=== PATIENT | female | born 1990 | race Hispanic/Latino ===

== ENCOUNTER 2018-03-16 19:07 | Emergency (ER) | payer SELFPAY ==
[2018-03-16 19:54] LABS: Urine Blood 3+ (NEG); Urine Glucose NEGATIVE (NEG); Urine Protein 1+ (NEG); Urine Specific Gravity 1.015 (1.005-1.030); Urine pH 8.5 (5.0-7.0)
[2018-03-16 20:02] LABS: Absolute Lymphocytes (CBC) 2.1 K/uL (0.7-4.9); Absolute Monocytes 0.6 K/uL (0.1-1.3); Absolute Neutrophil 6.3 K/uL (1.8-8.0); Basophils % 0.4 % (0-1.3); Eosinophils % 1.2 % (0-4.4); Hematocrit 38.4 % (36.0-45.0); Lymphocytes % 22.9 % (15.3-44.8); MPV 8.2 fL (7.6-11.3); Monocytes % 6.9 % (3.3-12.3)
[2018-03-16 20:36] LABS: BUN Blood Urea Nitrogen 6 mg/dL (7-18); Bicarbonate 25 mmol/L (21-32); Glucose Level 96 mg/dL (74-106); HCG, Quantitative 88736 mIU/mL (1-3); Potassium 3.5 mmol/L (3.5-5.1); Sodium Level 138 mmol/L (136-145)
--- NOTE | 2018-03-16 21:30 | ER ---
Nurse's Notes [facility] Name: William Ash Age: 28 yrs Sex: Female : 1990 Arrival Date: 03/16/2018 Time: 19:15 Bed 14 Private MD: Diagnosis: 9 weeks gestation of Presentation: 03/16 19:22 Presenting complaint: Patient states: vaginal bleeding at 1800 tonight with clots and ak1 abd cramps. pt LMP 01/09/18 and her 3rd . pt started a z-pack today for "throat infection" from the [facility]. pt has not started receiving care as of yet. Transition of care: patient was not received from another setting of care. Onset of symptoms was March 16, 2018. Risk Assessment: Do you want to hurt yourself or someone else? Patient reports no desire to harm self or others. Initial Sepsis Screen: Does the patient meet any 2 criteria? No. Patient's initial sepsis screen is negative. Does the patient have a suspected source of infection? No. Patient's initial sepsis screen is negative. Care prior to arrival: None. 19:22 Method Of Arrival: Ambulatory ak1 19:22 Acuity: LAURI 3 ak1 Triage Assessment: 19:24 General: Appears in no apparent distress. Behavior is calm, cooperative. ak1 19:25 : No signs and/or symptoms were reported regarding the genitourinary system. 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 - Social history:: Smoking status: Patient/guardian denies using tobacco. - Ebola Screening: : No symptoms or risks identified at this time. Screenin:25 Abuse screen: Denies threats or abuse. Denies injuries from another. Nutritional cc3 screening: No deficits noted. Tuberculosis screening: No symptoms or risk factors identified. Fall Risk Ambulatory Aid- None/Bed Rest/Nurse Assist (0 pts). Gait- Normal/Bed Rest/Wheelchair (0 pts) Mental Status- Oriented to own ability (0 pts). Assessment: 19:25 Obstetrical Assessment: General assessment: awake and alert, skin warm and dry. Pain: cc3 Denies pain. 20:18 Reassessment: Patient appears in no apparent distress at this time. Patient and/or cc3 family updated on plan of care and expected duration. Pain level reassessed. Patient is alert, oriented x 3, equal unlabored respirations, skin warm/dry/pink. 21:55 Reassessment: Patient appears in no apparent distress at this time. Patient and/or cc3 family updated on plan of care and expected duration. Pain level reassessed. Patient is alert, oriented x 3, equal unlabored respirations, skin warm/dry/pink. MANAGER COLLECTION Vin discharged the patient home, no prescription given. No IV cannula in situ, patient left ER vitally stable and ambulatory with her family. Vital Signs: 19:22 BP 131 / 91; Pulse 91; Resp 18; Temp 98.6(TE); Pulse Ox 99% on R/A; Weight 95.25 kg ak1 (R); Height 5 ft. 6 in. (167.64 cm) (R); Pain 8/10; 20:30 BP 116 / 78; Pulse 76; Resp 19 S; Pulse Ox 99% on R/A; cc3 21:17 BP 118 / 55; Pulse 75; Resp 16 S; Pulse Ox 100% on R/A; cc3 19:22 Body Mass Index 33.89 (95.25 kg, 167.64 cm) ak1 ED Course: 19:15 Patient arrived in ED. ag3 19:23 Triage completed. ak1 19:24 Arm band placed on Patient placed in an exam room, on a stretcher, Patient notified of ak1 wait time. 19:25 Jessie Fang is Primary Nurse. cc3 19:25 Patient has correct armband on for positive identification. Call light in reach. Side cc3 rails up X 1. Pulse ox on. NIBP on. 19:29 Clarisa Banuelos FNP-C is PHCP. kb 19:29 Bennett Richardson MD is Attending Physician. kb 21:06 Ultrasound completed. Patient tolerated well. sg3 21:09 US Transvaginal Ob In Process Unspecified. EDMS 21:55 No provider procedures requiring assistance completed. Patient did not have IV access cc3 during this emergency room visit. Administered Medications: No medications were administered Outcome: 21:30 Discharge ordered by . isabel 21:55 Discharged to home ambulatory, with family. cc3 21:55 Condition: stable 21:55 Discharge instructions given to patient, family, Instructed on discharge instructions, follow up and referral plans. Demonstrated understanding of instructions, follow-up care. 22:07 Patient left the ED. cc3 Signatures: Dispatcher [employer] EDTN Clarisa Banuelos, COLOR SEPARATION PHOTOGRAPHER-C COLOR SEPARATION PHOTOGRAPHER-Ava Bautista RN RN ak1 Becky Montes sg3 Jessie Fang cc3 Heidi Felix 3 Corrections: (The following items were deleted from the chart) 03/17 01:58 03/16 21:55 No provider procedures requiring assistance completed. cc3 cc3 03/17 01:59 03/16 19:25 Heart Tones not ordered. cc3 cc3 03/17 01:59 03/16 20:11 Urine : hCG=Positive. cc3 cc3
--- NOTE | 2018-03-16 21:31 | EDPHYS ---
Physician Documentation [facility] Name: William Ash Age: 28 yrs Sex: Female : 1990 Arrival Date: 03/16/2018 Time: 19:15 Bed 14 Private MD: ED Physician Bennett Richardson HPI: 03/16 21:28 This 28 yrs old Female presents to ER via Ambulatory with complaints of kb Vaginal Bleeding, + Preg <12wks. 21:28 The patient presents to the emergency department with abdominal pain, vaginal bleeding, kb described as spotting. The estimated gestational age is 9 weeks. course: care: none, Leakage of Fluid: none appreciated, Ultrasound: the patient has not had an ultrasound, Risk/complications: no obvious risks or complications are appreciated. Previous pregnancies: in previous pregnancies patient has had. Associated signs and symptoms: Pertinent positives: abdominal pain, vaginal bleeding, Pertinent negatives: chest pain, diarrhea, dysuria, fever, frequency, nausea, ruptured membranes, seizure, shortness of breath, vaginal discharge, vomiting. The patient has not experienced similar symptoms in the past. The patient has not recently seen a physician. 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 - Social history:: Smoking status: Patient/guardian denies using tobacco. - Ebola Screening: : No symptoms or risks identified at this time. ROS: 21:27 Constitutional: Negative for fever, chills, and weight loss, Cardiovascular: Negative kb for chest pain, palpitations, and edema, Respiratory: Negative for shortness of breath, cough, wheezing, and pleuritic chest pain, Back: Negative for injury and pain, MS/Extremity: Negative for injury and deformity, Skin: Negative for injury, rash, and discoloration, Neuro: Negative for headache, weakness, numbness, tingling, and seizure. 21:27 Abdomen/GI: Positive for abdominal pain, Negative for nausea, vomiting, and diarrhea. 21:27 : Positive for vaginal bleeding. Exam: 21:27 Constitutional: This is a well developed, well nourished patient who is awake, alert, kb and in no acute distress. Head/Face: Normocephalic, atraumatic. Chest/axilla: Normal chest wall appearance and motion. Nontender with no deformity. No lesions are appreciated. Cardiovascular: Regular rate and rhythm with a normal S1 and S2. No gallops, murmurs, or rubs. Normal PMI, no JVD. No pulse deficits. Respiratory: Lungs have equal breath sounds bilaterally, clear to auscultation and percussion. No rales, rhonchi or wheezes noted. No increased work of breathing, no retractions or nasal flaring. Back: No spinal tenderness. No costovertebral tenderness. Full range of motion. Skin: Warm, dry with normal turgor. Normal color with no rashes, no lesions, and no evidence of cellulitis. MS/ Extremity: Pulses equal, no cyanosis. Neurovascular intact. Full, normal range of motion. Neuro: Awake and alert, GCS 15, oriented to person, place, time, and situation. Cranial nerves II-XII grossly intact. Motor strength 5/5 in all extremities. Sensory grossly intact. Cerebellar exam normal. Normal gait. 21:27 Abdomen/GI: Inspection: abdomen appears normal, Bowel sounds: normal, in all quadrants, Palpation: mild abdominal tenderness, in the right lower quadrant and left lower quadrant. Vital Signs: 19:22 BP 131 / 91; Pulse 91; Resp 18; Temp 98.6(TE); Pulse Ox 99% on R/A; Weight 95.25 kg ak1 (R); Height 5 ft. 6 in. (167.64 cm) (R); Pain 8/10; 20:30 BP 116 / 78; Pulse 76; Resp 19 S; Pulse Ox 99% on R/A; cc3 21:17 BP 118 / 55; Pulse 75; Resp 16 S; Pulse Ox 100% on R/A; cc3 19:22 Body Mass Index 33.89 (95.25 kg, 167.64 cm) ak1 MDM: 19:29 Patient medically screened. kb 21:27 Data reviewed: vital signs, nurses notes. Data interpreted: Pulse oximetry: on room air kb is 100 %. Interpretation: normal. 21:29 Counseling: I had a detailed discussion with the patient and/or guardian regarding: the kb historical points, exam findings, and any diagnostic results supporting the discharge/admit diagnosis, lab results, radiology results, the need for outpatient follow up, an OB/Gyne specialist, to return to the emergency department if symptoms worsen or persist or if there are any questions or concerns that arise at home. 03/16 19:30 Order name: Quantitative Hcg; Complete Time: 20:37 kb 03/16 19:30 Order name: Abo/rh Typing; Complete Time: 21:15 kb 03/16 19:30 Order name: Basic Metabolic Panel; Complete Time: 20:37 kb 03/16 19:30 Order name: CBC with Diff; Complete Time: 20:11 kb 03/16 19:37 Order name: Urine Dipstick--Ancillary (enter results); Complete Time: 20:11 mw2 03/16 19:37 Order name: Urine --Ancillary (enter results); Complete Time: 20:11 mw2 03/16 19:30 Order name: Urine Test (obtain specimen); Complete Time: 20:17 kb 03/16 19:30 Order name: IV Saline Lock; Complete Time: 22:07 kb 03/16 19:30 Order name: Labs collected and sent; Complete Time: 20:17 kb 03/16 19:30 Order name: NPO; Complete Time: 19:35 kb 03/16 19:30 Order name: Urine Dipstick-Ancillary (obtain specimen); Complete Time: 20:17 kb 03/16 20:38 Order name: US Transvaginal Ob; Complete Time: 21:45 kb Administered Medications: No medications were administered Disposition: 03/16/18 21:30 Discharged to Home. Impression: 9 weeks gestation of . - Condition is Stable. - Discharge Instructions: First Trimester of , [id number]. - Work release form, Medication Reconciliation Form, Thank You Letter, Antibiotic Education, Prescription Opioid Use form. - Follow up: Emergency Department; When: As needed; Reason: Worsening of condition. Follow up: Private Physician; When: 2 - 3 days; Reason: Recheck today's complaints, Continuance of care, Re-evaluation by your physician. Addendum: 03/24/2018 03:22 Co-signature as Attending Physician, Bennett Richardson MD. g s Signatures: Dispatcher [employer] EDClarisa Bustillos, EPOXY SPECIALIST-C EPOXY SPECIALIST-Ava Bautista, RN RN ak1 Bennett Richardson MD MD Jessie Fang cc3 Corrections: (The following items were deleted from the chart) 03/16 22:07 21:30 03/16/2018 21:30 Discharged to Home. Impression: 9 weeks gestation of . cc3 Condition is Stable. Forms are Medication Reconciliation Form, Thank You Letter, Antibiotic Education, Prescription Opioid Use. Follow up: Emergency Department; When: As needed; Reason: Worsening of condition. Follow up: Private Physician; When: 2 - 3 days; Reason: Recheck today's complaints, Continuance of care, Re-evaluation by your physician. kb
--- NOTE | 2018-03-16 21:44 | RAD REPORT ---
EXAM DESCRIPTION: US - Transvaginal OB - 03/16/2018 9:09 pm CLINICAL HISTORY: , vaginal bleeding COMPARISON: None. TECHNIQUE: Endovaginal sonography performed. FINDINGS: A normal shaped intrauterine gestational sac is identified with yolk sac and pole. N o intrauterine hematoma or mass. Gestational sac and crown-rump length measurements correspond 9 week 1 day age. Heart rate is 178 BPM. Calculated YANETH is 10/18/2018. Neither ovary was identifiable. No adnexal mass seen. No free fluid identified. No cervical canal abnormality seen. IMPRESSION: Single 9 week 1 day IUP with an YANETH of 10/18/2018. Heart rate is 178 BPM. No hematoma, mass or acute intrauterine finding. Nonvisualization of the ovaries with no adnexal mass identifiable.
[2018-03-16 22:14] VITALS: TEMP 98.6
[2018-03-16 22:18] VITALS: BP 118/55; O2SAT 100
== END 2018-03-16 22:07 | disposition home or self-care (01) ==
LOC: ER 19:07
DX: O26.851 Spotting complicating pregnancy, first trimester (principal); Z3A.09 9 weeks gestation of pregnancy; Z88.0 Allergy status to penicillin
CPT/HCPCS: 36415; 76817; 80048; 81003; 81025; 84702; 85025; 86900; 86901